=== PATIENT | female | born 1980 | race Caucasian/White ===

== ENCOUNTER 2018-04-08 11:37 | Emergency (ER) | payer MEDICAID ==
[2018-04-08 11:52] VITALS: BP 127/99
[2018-04-08] MEDS ORDERED: LORazepam 2 MG/ML VIAL IVP ONE ×2 (12:20→13:55)
[2018-04-08 12:38] LABS: PLATELET COUNT, AUTOMATED 281 K/uL (150-450)
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
== END 2018-04-08 14:38 ==
LOC: ER 12:01
DX: F20.0 Paranoid schizophrenia (principal); R45.851 Suicidal ideations; F31.9 Bipolar disorder, unspecified
CPT/HCPCS: 80305; 81001; 81025; 83735; 84443; 85025; 96374; 96376; 99284; G0480; J2060; 80320; 80329; 82040; 82247; 82310; 82374; 82435; 82565; 82947; 84075; 84132; 84155; 84295; 84450; 84460; 84520

== ENCOUNTER 2018-04-08 14:17 | Inpatient (IN) | payer MEDICAID, OTHER ==
[2018-04-08] MEDS ORDERED: MAG HYD/AL HYD/SIMETH 30ML UDC PO PRN (14:45)
[2018-04-08] MEDS ORDERED: ACETAMINOPHEN 325 MG TAB PO PRN (14:45)
[2018-04-08] MEDS: OLANZapine 5 MG TAB PO PRN (14:49)
[2018-04-08 15:54] VITALS: BP 120/89
[2018-04-08] MEDS ORDERED: NICOTINE CARTRIDGE 1 EA PO PRN (16:30)
[2018-04-09 05:44] VITALS: BP 133/109
[2018-04-09] MEDS: MULTIVITAMINS PO SCH (08:11)
[2018-04-09] MEDS: NICOTINE INH SYSTEM 10 MG/INH INH PRN ×6 (08:15→19:16)
[2018-04-09] MEDS: OLANZapine 5 MG TAB PO SCH ×2 (10:48→20:37)
[2018-04-09] MEDS: LITHIUM CARBONATE 300 MG CAP PO SCH ×2 (10:48→20:37)
[2018-04-09] MEDS ORDERED: NICOTINE POLACRILEX 2 MG GUM PO PRN (11:15)
[2018-04-09 13:00] VITALS: BP 115/64
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
[2018-04-09 22:20] VITALS: BP 119/64
[2018-04-10 06:31] VITALS: BP 120/70
[2018-04-10] MEDS: MULTIVITAMINS PO SCH (07:25)
[2018-04-10] MEDS: NICOTINE INH SYSTEM 10 MG/INH INH PRN ×5 (07:25→23:04)
[2018-04-10] MEDS: OLANZapine 5 MG TAB PO SCH ×2 (07:25→21:12)
[2018-04-10] MEDS: LITHIUM CARBONATE 300 MG CAP PO SCH (07:25)
[2018-04-10 13:15] VITALS: BP 128/58
--- NOTE | 2018-04-10 13:42 | BHS Progress Note ---
[facility] - Subjective Progress Notes Subjective Pt seen in treatment team meeting with her aunt on speaker phone and Mr. Duron from [facility] in attendance. Pt is still pressured in speech, still vague paranoia, still labile with tears one minute then jumping up and down and laughing in the hallway a short time later. But overall much improved since yesterday after just 24 hours on zyprexa and lithium. Denies n/v/d/tremor/oversedation. Then I attended both the baby's custody hearing as well as her initial Title 25 hearing. She was very tearful at times in court, but behavior was in good control. The baby was ordered into temporary custody of [facility], and pt's involuntary halfway extended not more than 10 days. She tells me she knows she needs more time to stabilize on meds. We are going to call [employer] to come see her-- they might be a valuable resource for her after she is discharged. We told [facility] that we recommend the baby come to visit pt. today and daily during visiting hours-- she will be supervised. Will change meds today so that she is on once-daily dosing and will increase lithium to 900mg per day. Suicidal Ideation: None Homicidal Ideation: None [facility] - Objective Physical Exam Vital Signs Vital Signs 04/09/18 04/10/18 05:44 06:31 Temp 99.3 Pulse 50 Resp 15 B/P (MAP) 120/70 (87) Pulse Ox 96 O2 Delivery Room Air Muscle Strength and Tone: WNL Gait and Station: Steady [facility] Medications Reviewed: Side Effects, Benefits of Medication, Risks Allergies Reviewed: Yes Mental Status Exam General Appearance: Well Groomed, Cooperative, Good Interaction, Tearful Speech: Clear, Rambling Mood: Dysthmic/Depressed Affect: Tearful, Anxious, Agitated, Other (labile) Thought Process: Other (circumstantial to tangential) Thought Content: No Suicidal Ideation, No Homicidal Ideation; Delusions (resolving), Auditory Halllucinations (resolving); No Visual Hallucinations, No Thought Broadcasting, No Ideas of Reference, No Obsessions, No Compulsions, No Other Sensorium: Clear Cognition: Alert & Oriented-Person, Alert & Oriented-Place, Alert & Oriented- Time, Xcfuh-Yioajatn-Efimkzfrh Memory: Immediate, Recent, Remote Intelligence: Average Insight Judgment: Poor (due to psychosis) [facility] Assessment and Plan Rhdc-sj-Qaok Encounter Date: Apr 10, 2018 Enjg-oy-Zweu Encounter Time: 09:30 [facility] Plan: Admit to Unit, Necessary Precautions, Individual/Group Therapy, Admin/Titrate Meds, Educate Patient Tobacco Medications: Started Multpiple Antipsychotics Used: No Problems: (1) Bipolar disorder, current episode manic severe with psychotic features PAUL BATES MD Apr 10, 2018 13:42
[2018-04-10] MEDS: OLANZapine 5 MG TAB PO PRN ×2 (16:36→23:43)
[2018-04-10] MEDS ORDERED: LITHIUM CARBONATE 300 MG TABCR PO ONE (21:00)
[2018-04-10 23:08] VITALS: BP 112/74
[2018-04-10] MEDS ORDERED: LORazepam 1 MG TAB PO ONE (23:25)
[2018-04-11] MEDS: MULTIVITAMINS PO SCH (08:16)
--- NOTE | 2018-04-11 09:36 | BHS Progress Note ---
[facility] - Subjective Progress Notes Subjective "I'm good. I'm ready to go home." Reports that she feels she is thinking clearly and she does not understand why she is still here. She denies hallucinations. Denies paranoid thoughts. "My 72 hours is up so I can leave." Suicidal Ideation: None Homicidal Ideation: None [facility] - Objective Physical Exam Vital Signs Vital Signs 04/10/18 23:08 Temp 98.0 Pulse 63 Resp 16 B/P (MAP) 112/74 (87) Pulse Ox 94 O2 Delivery Room Air Muscle Strength and Tone: WNL Gait and Station: Steady [facility] Medications Reviewed: Side Effects, Benefits of Medication, Risks Allergies Reviewed: Yes Mental Status Exam General Appearance: Well Groomed, Cooperative, Good Interaction Speech: Clear, Rambling Mood: Dysthmic/Depressed Affect: Anxious, Agitated, Other (labile) Thought Process: Other (circumstantial to tangential) Thought Content: No Suicidal Ideation, No Homicidal Ideation; Delusions (resolving), Auditory Halllucinations (resolving); No Visual Hallucinations, No Thought Broadcasting, No Ideas of Reference, No Obsessions, No Compulsions, No Other Sensorium: Clear Cognition: Alert & Oriented-Person, Alert & Oriented-Place, Alert & Oriented- Time, Pzokg-Dyrooevb-Zazgcdsjf Memory: Immediate, Recent, Remote Intelligence: Average Insight Judgment: Poor (due to psychosis) [facility] Assessment and Plan Vkht-wo-Hgew Encounter Date: Apr 11, 2018 Oqle-wr-Awxh Encounter Time: 09:15 [facility] Plan: Admit to Unit, Necessary Precautions, Individual/Group Therapy, Admin/Titrate Meds, Educate Patient Tobacco Medications: Started Multpiple Antipsychotics Used: No Problems: (1) Bipolar disorder, current episode manic severe with psychotic features Status: Acute OLIVA VAUGHN NP Apr 11, 2018 09:36
[2018-04-11] MEDS: NICOTINE INH SYSTEM 10 MG/INH INH PRN ×5 (10:51→20:55)
[2018-04-11 12:25] VITALS: BP 122/90
[2018-04-11] MEDS: OLANZapine 5 MG TAB PO SCH (20:54)
[2018-04-11] MEDS: LITHIUM CARBONATE 300 MG TABCR PO SCH (20:54)
[2018-04-12 05:01] VITALS: BP 130/85
[2018-04-12] MEDS: NICOTINE INH SYSTEM 10 MG/INH INH PRN ×4 (08:30→18:46)
[2018-04-12] MEDS: MULTIVITAMINS PO SCH (08:31)
--- NOTE | 2018-04-12 11:51 | BHS Progress Note ---
[facility] - Subjective Progress Notes Subjective "I need to know why I'm still here. You can't hold me here against my will. I came here voluntarily. Suicidal Ideation: None Homicidal Ideation: None [facility] - Objective Physical Exam Deferred Vital Signs Date Time Temp Pulse Resp B/P (MAP) Pulse Ox O2 Delivery O2 Flow Rate FiO2 04/12/18 05:01 97.8 49 14 130/85 (100) 95 Room Air Muscle Strength and Tone: WNL Gait and Station: Steady [facility] Medications Reviewed: Side Effects, Benefits of Medication, Risks Allergies Reviewed: Yes Mental Status Exam General Appearance: Well Groomed, Psychomotor Agitation Speech: Clear, Normal Volume, Normal Tone, Rambling Mood: Dysthmic/Depressed Affect: Anxious, Agitated, Other (labile) Thought Process: Other (circumstantial to tangential) Thought Content: No Suicidal Ideation, No Homicidal Ideation; Delusions (resolving), Auditory Halllucinations (denies); No Visual Hallucinations, No Thought Broadcasting, No Ideas of Reference, No Obsessions, No Compulsions, No Other Sensorium: Clear Cognition: Alert & Oriented-Person, Alert & Oriented-Place, Alert & Oriented- Time, Lhyvj-Gnenllja-Syuxamzgm Memory: Immediate, Recent, Remote Intelligence: Average Insight Judgment: Poor (due to psychosis) [facility] Assessment and Plan Zzdb-qf-Avsh Encounter Date: Apr 12, 2018 Kxel-lf-Cktz Encounter Time: 10:00 [facility] Plan: Admit to Unit, Necessary Precautions, Individual/Group Therapy, Admin/Titrate Meds, Educate Patient Tobacco Medications: Started Multpiple Antipsychotics Used: No Problems: (1) Bipolar disorder, current episode manic severe with psychotic features Status: Acute OLIVA VAUGHN NP Apr 12, 2018 11:51
[2018-04-12 12:15] VITALS: BP 120/88
--- NOTE | 2018-04-12 16:21 | NUR ---
pt daughter here, brought by Zhang from [facility]. visiting in pts room.
[2018-04-12] MEDS: LITHIUM CARBONATE 300 MG TABCR PO SCH (20:32)
[2018-04-12] MEDS: OLANZapine 5 MG TAB PO SCH (20:32)
[2018-04-13 06:02] VITALS: BP 109/71
[2018-04-13] MEDS: NICOTINE INH SYSTEM 10 MG/INH INH PRN ×5 (08:03→21:12)
[2018-04-13] MEDS: MULTIVITAMINS PO SCH (08:03)
[2018-04-13] MEDS: LITHIUM CARBONATE 450 MG TABCR PO SCH ×2 (10:06→21:12)
--- NOTE | 2018-04-13 13:09 | BHS Progress Note ---
[facility] - Subjective Progress Notes Subjective Pt seen in treatment team with her aunt and also Mr. Mc from [facility] both joining by speaker phone. Pt says she is feels "much better," and her aunt confirms that she sounds more like her usual best baseline. Pt denies ah/vh/delusions. She is tolerating zyprexa well, but she c/o the whole 900 mg of lithium all at once making her feel nauseated-- so we will split her dose to 450 mg BID. She is still a little pressured and hyperthymic, with dramatic voice and gestures, says she wants to "leave right now and get a job!" She had two good visits with her baby over the weekend. I would like to see her work on treatment at least another day or two, be sure she tolerates meds with new dosing, and would like to see any hypomania completely resolved before she is safe for discharge-- especially if she is going to regain custody of her baby (which is the Audiologist's decision) and travel by car back to [place]. Suicidal Ideation: None Homicidal Ideation: None [facility] - Objective Physical Exam Vital Signs Vital Signs 04/13/18 06:02 Temp 98.9 Pulse 48 Resp 15 B/P (MAP) 109/71 (84) Pulse Ox 94 O2 Delivery Room Air Muscle Strength and Tone: WNL Gait and Station: Steady [facility] Medications Reviewed: Side Effects, Benefits of Medication, Risks Allergies Reviewed: Yes Mental Status Exam General Appearance: Casual, Well Groomed, Good Eye Contact, Cooperative, Polite, Good Interaction, Psychomotor Agitation Speech: Clear, Other (speech is mildly pressured, mild rambling, but interruptible) Mood: Dysthmic/Depressed, Hyperthymic, Other (still a bit labile) Affect: Anxious, Agitated (mildly), Other (labile) Thought Process: Other (circumstantial to tangential) Thought Content: No Suicidal Ideation, No Homicidal Ideation; Delusions (resolving), Auditory Halllucinations (denies); No Visual Hallucinations, No Thought Broadcasting, No Ideas of Reference, No Obsessions, No Compulsions, No Other Sensorium: Clear Cognition: Alert & Oriented-Person, Alert & Oriented-Place, Alert & Oriented- Time, Entaf-Pqmenqvf-Gyovikmjf Memory: Immediate, Recent, Remote Intelligence: Average Insight Judgment: Fair (improving as psychosis and alia are resolving) [facility] Assessment and Plan Aonz-qc-Jjga Encounter Date: Apr 13, 2018 Amvo-dg-Xlar Encounter Time: 08:30 [facility] Plan: Admit to Unit, Necessary Precautions, Individual/Group Therapy, Admin/Titrate Meds, Educate Patient Tobacco Medications: Started Multpiple Antipsychotics Used: No Problems: (1) Bipolar disorder, current episode manic severe with psychotic features Status: Acute PAUL BATES MD Apr 13, 2018 13:09
[2018-04-13 13:19] VITALS: BP 135/90
[2018-04-13] MEDS: OLANZapine 5 MG TAB PO SCH (21:12)
[2018-04-14 06:32] VITALS: BP 123/77
[2018-04-14] MEDS: MULTIVITAMINS PO SCH (08:41)
[2018-04-14] MEDS: LITHIUM CARBONATE 450 MG TABCR PO SCH ×2 (08:41→21:32)
[2018-04-14] MEDS: NICOTINE INH SYSTEM 10 MG/INH INH PRN ×2 (08:45→12:55)
--- NOTE | 2018-04-14 11:28 | BHS Progress Note ---
[facility] - Subjective Progress Notes Subjective Pt seen in conference room. She says she is feeling much better, feels meds are helping a lot, denies oversedation/n/v/d/tremor. She is still a bit tangential, guarded, with labile affect-- pleasant and smiling to irritable and hostile when we indicated that she needs a couple more days to stabilize. We would like to help her plan for a safe discharge to include housing, medications, therapy-- she is still trying to decide between returning to [facility] vs possibly staying here in [place], working with [employer], establishing her own apartment and a job. Will continue current meds and check routine lithium labs tomorrow, also repeat U/A which was abnormal. Suicidal Ideation: None Homicidal Ideation: None [facility] - Objective Physical Exam Vital Signs Vital Signs 04/13/18 04/14/18 06:02 06:32 Temp 98.7 Pulse 51 Resp 15 B/P (MAP) 123/77 (92) Pulse Ox 97 O2 Delivery Room Air Muscle Strength and Tone: WNL Gait and Station: Steady [facility] Medications Reviewed: Side Effects, Benefits of Medication, Risks Allergies Reviewed: Yes Mental Status Exam General Appearance: Casual, Well Groomed, Good Eye Contact, Cooperative, Polite, Good Interaction, Psychomotor Agitation Speech: Clear, Other (speech is mildly pressured, mild rambling, but interruptible) Mood: Dysthmic/Depressed, Hyperthymic, Other (labile-- happy one minute then hostile and irritable) Affect: Anxious, Agitated (mildly), Other (labile) Thought Process: Other (circumstantial to tangential) Thought Content: No Suicidal Ideation, No Homicidal Ideation; Delusions (resolving); No Auditory Halllucinations, No Visual Hallucinations, No Thought Broadcasting, No Ideas of Reference, No Obsessions, No Compulsions, No Other Sensorium: Clear Cognition: Alert & Oriented-Person, Alert & Oriented-Place, Alert & Oriented- Time, Lffsq-Wblmqdby-Rkigtezpu Memory: Immediate, Recent, Remote Intelligence: Average Insight Judgment: Fair (improving as psychosis and alia are resolving) [facility] Assessment and Plan Hcrm-kb-Sogk Encounter Date: Apr 14, 2018 Rajz-zf-Ihte Encounter Time: 09:00 [facility] Plan: Admit to Unit, Necessary Precautions, Individual/Group Therapy, Admin/Titrate Meds, Educate Patient Tobacco Medications: Started Multpiple Antipsychotics Used: No Problems: (1) Bipolar disorder, current episode manic severe with psychotic features Status: Acute PAUL BATES MD Apr 14, 2018 11:28
[2018-04-14] MEDS: OLANZapine 5 MG TAB PO SCH (21:32)
[2018-04-15 05:49] VITALS: BP 116/78
[2018-04-15] MEDS: MULTIVITAMINS PO SCH (08:08)
[2018-04-15] MEDS: LITHIUM CARBONATE 450 MG TABCR PO SCH ×2 (08:08→21:20)
[2018-04-15] MEDS: NICOTINE INH SYSTEM 10 MG/INH INH PRN ×4 (08:27→17:38)
--- NOTE | 2018-04-15 18:30 | BHS Progress Note ---
[facility] - Subjective Progress Notes Subjective Pt seen in treatment team with DFS on phone, members of [facility] present, and [facility] Business Administration Professor present, and Angel from [facility]. Pt doing better today, but she did tell me "I think I need more medicine." She had a lot of racing thoughts and paranoia yesterday. Team is working toward a safe discharge plan here in [place], with housing via [facility], follow up at [facility], and an outpatient commitment. Will increase zyprexa tonight to 15 mg. Will add stool softener for c/o constipation. Hale level is 1.0. Other labs look good. Suicidal Ideation: None Homicidal Ideation: None [facility] - Objective Physical Exam Vital Signs Vital Signs 04/15/18 05:49 Temp 97.6 Pulse 50 Resp 15 B/P (MAP) 116/78 (91) Pulse Ox 96 O2 Delivery Room Air Muscle Strength and Tone: WNL Gait and Station: Steady [facility] Medications Reviewed: Side Effects, Benefits of Medication, Risks Allergies Reviewed: Yes Mental Status Exam General Appearance: Casual, Well Groomed, Good Eye Contact, Cooperative, Polite, Good Interaction, Psychomotor Agitation Speech: Clear, Other (speech is mildly pressured, mild rambling, but interru ptible) Mood: Dysthmic/Depressed, Hyperthymic, Other (labile-- happy one minute then hostile and irritable) Affect: Anxious, Agitated (mildly), Other (labile) Thought Process: Other (circumstantial to tangential) Thought Content: No Suicidal Ideation, No Homicidal Ideation; Delusions (resolving); No Auditory Halllucinations, No Visual Hallucinations, No Thought Broadcasting, No Ideas of Reference, No Obsessions, No Compulsions, No Other Sensorium: Clear Cognition: Alert & Oriented-Person, Alert & Oriented-Place, Alert & Oriented- Time, Plzxq-Fjnxqxye-Lfzbxmsaw Memory: Immediate, Recent, Remote Intelligence: Average Insight Judgment: Fair (improving as psychosis and alia are resolving) Result Diagram: 04/15/18 0717 Lab Hematology Test 04/09/18 00:00 04/15/18 00:00 04/15/18 07:17 Hepatitis A IgM Antibody Negative (Negative) Hepatitis B Surface Antigen Negative (Negative) Hepatitis B Core IgM Antibody Negative (Negative) Hepatitis C Antibody 0.07 IV Hepatitis C Interpretation Negative (Negative) Hepatitis Interpretation See note HIV (1&2) Antibody Negative (NEGATIVE) Urine Color Yellow Urine Clarity Clear Urine pH 6.0 pH (4.8-9.5) Urine Specific [place] 1.015 Urine Protein Negative mg/dL (NEGATIVE) Urine Glucose (UA) Negative mg/dL (NEGATIVE) Urine Ketones Negative mg/dL (NEGATIVE) Urine Blood Small (NEGATIVE) Urine Nitrite Negative (NEGATIVE) Urine Bilirubin Negative (NEGATIVE) Urine Urobilinogen Negative mg/dL (0.2-1.9) Urine Leukocyte Esterase Negative (NEGATIVE) Urine RBC 5 /HPF (0-2/HPF) Urine WBC 2 /HPF (0-5/HPF) Urine Squamous Epithelial Cells Many /LPF (</=FEW) Urine Bacteria Negative /HPF (NONE-FEW) Urine Mucus None /HPF (NONE-FEW) Sodium Level 138 mmol/L (137-145) Potassium Level 4.2 mmol/L (3.5-5.0) Chloride Level 107 mmol/L (98-107) Carbon Dioxide Level 25 mmol/L (22-31) Blood Urea Nitrogen 16 mg/dl (7-18) Creatinine 0.80 mg/dl (0.52-1.04) Glomerular Filtration Rate Calc > 60.0 Random Glucose 81 mg/dl (75-110) Calcium Level 9.5 mg/dl (8.4-10.2) Total Bilirubin 0.3 mg/dl (0.2-1.3) Aspartate Amino Transf (AST/SGOT) 20 U/L (0-35) Alanine Aminotransferase (ALT/SGPT) 27 U/L (0-56) Alkaline Phosphatase 36 U/L (0-126) Total Protein 6.7 g/dl (6.3-8.2) Albumin 4.0 g/dl (3.5-5.0) Thyroid Stimulating Hormone (TSH) 1.84 uIU/ml (0.46-4.68) Hale Level 1.0 mmol/L (0.6-1.2) Chemistry Test 04/09/18 00:00 04/15/18 00:00 04/15/18 07:17 Hepatitis A IgM Antibody Negative (Negative) Hepatitis B Surface Antigen Negative (Negative) Hepatitis B Core IgM Antibody Negative (Negative) Hepatitis C Antibody 0.07 IV Hepatitis C Interpretation Negative (Negative) Hepatitis Interpretation See note HIV (1&2) Antibody Negative (NEGATIVE) Urine Color Yellow Urine Clarity Clear Urine pH 6.0 pH (4.8-9.5) Urine Specific [place] 1.015 Urine Protein Negative mg/dL (NEGATIVE) Urine Glucose (UA) Negative mg/dL (NEGATIVE) Urine Ketones Negative mg/dL (NEGATIVE) Urine Blood Small (NEGATIVE) Urine Nitrite Negative (NEGATIVE) Urine Bilirubin Negative (NEGATIVE) Urine Urobilinogen Negative mg/dL (0.2-1.9) Urine Leukocyte Esterase Negative (NEGATIVE) Urine RBC 5 /HPF (0-2/HPF) Urine WBC 2 /HPF (0-5/HPF) Urine Squamous Epithelial Cells Many /LPF (</=FEW) Urine Bacteria Negative /HPF (NONE-FEW) Urine Mucus None /HPF (NONE-FEW) Glomerular Filtration Rate Calc > 60.0 Calcium Level 9.5 mg/dl (8.4-10.2) Total Bilirubin 0.3 mg/dl (0.2-1.3) Aspartate Amino Transf (AST/SGOT) 20 U/L (0-35) Alanine Aminotransferase (ALT/SGPT) 27 U/L (0-56) Alkaline Phosphatase 36 U/L (0-126) Total Protein 6.7 g/dl (6.3-8.2) Albumin 4.0 g/dl (3.5-5.0) Thyroid Stimulating Hormone (TSH) 1.84 uIU/ml (0.46-4.68) Hale Level 1.0 mmol/L (0.6-1.2) Toxicology Test 04/15/18 07:17 Hale Level 1.0 mmol/L (0.6-1.2) Urinalysis Test 04/15/18 00:00 Urine Color Yellow Urine Clarity Clear Urine pH 6.0 pH (4.8-9.5) Urine Specific [place] 1.015 Urine Protein Negative mg/dL (NEGATIVE) Urine Glucose (UA) Negative mg/dL (NEGATIVE) Urine Ketones Negative mg/dL (NEGATIVE) Urine Blood Small (NEGATIVE) Urine Nitrite Negative (NEGATIVE) Urine Bilirubin Negative (NEGATIVE) Urine Urobilinogen Negative mg/dL (0.2-1.9) Urine Leukocyte Esterase Negative (NEGATIVE) Urine RBC 5 /HPF (0-2/HPF) Urine WBC 2 /HPF (0-5/HPF) Urine Squamous Epithelial Cells Many /LPF (</=FEW) Urine Bacteria Negative /HPF (NONE-FEW) Urine Mucus None /HPF (NONE-FEW) [facility] Assessment and Plan Qfyf-ui-Afoc Encounter Date: Apr 15, 2018 Fypn-la-Iorf Encounter Time: 09:30 [facility] Plan: Admit to Unit, Necessary Precautions, Individual/Group Therapy, Admin/Titrate Meds, Educate Patient Tobacco Medications: Started Multpiple Antipsychotics Used: No Problems: (1) Bipolar disorder, current episode manic severe with psychotic features Status: Acute PAUL BATES MD Apr 15, 2018 18:30
[2018-04-15] MEDS: OLANZapine 5 MG TAB PO SCH (21:20)
[2018-04-15] MEDS: BISACODYL 5 MG TABEC PO SCH (21:20)
[2018-04-15] MEDS: DOCUSATE SODIUM 100 MG CAP PO SCH (21:20)
[2018-04-16 06:03] VITALS: BP 102/67
[2018-04-16] MEDS: LITHIUM CARBONATE 450 MG TABCR PO SCH ×2 (08:46→20:06)
[2018-04-16] MEDS: MULTIVITAMINS PO SCH (08:47)
[2018-04-16] MEDS: NICOTINE INH SYSTEM 10 MG/INH INH PRN ×3 (09:01→15:47)
--- NOTE | 2018-04-16 18:08 | BHS Progress Note ---
[facility] - Subjective Progress Notes Subjective Pt seen in conference room with staff. Pt doing better, says she feels mood is more stable, is pleasant and smiling. Tolerated the increased dose of zyprexa well, denies oversedation. We reviewed plans for tentative DC tomorrow with supports in the community. She will follow up at [facility]. Eder erating lithium well, denies n/v/d/tremor. Suicidal Ideation: None Homicidal Ideation: None [facility] - Objective Physical Exam Vital Signs Vital Signs 04/16/18 06:03 Temp 97.8 Pulse 50 Resp 15 B/P (MAP) 102/67 (79) Pulse Ox 95 O2 Delivery Room Air Muscle Strength and Tone: WNL Gait and Station: Steady [facility] Medications Reviewed: Side Effects, Benefits of Medication, Risks Allergies Reviewed: Yes Mental Status Exam General Appearance: Casual, Well Groomed, Good Eye Contact, Cooperative, Polite, Good Interaction, Psychomotor Agitation Speech: Clear, Other (speech is mildly pressured, mild rambling, but interruptible) Mood: Euthymic Affect: Full and Appropriate Thought Process: Organized, Logical, Goal Directed Thought Content: No Suicidal Ideation, No Homicidal Ideation, No Delusions, No Auditory Halllucinations, No Visual Hallucinations, No Thought Broadcasting, No Ideas of Reference, No Obsessions, No Compulsions, No Other Sensorium: Clear Cognition: Alert & Oriented-Person, Alert & Oriented-Place, Alert & Oriented- Time, Znnms-Ofwddkxf-Raesqwcua Memory: Immediate, Recent, Remote Intelligence: Average Insight Judgment: Fair (improving as psychosis and alia are resolving) Result Diagram: 04/15/18 0717 [facility] Assessment and Plan Ktiq-ia-Llgq Encounter Date: Apr 16, 2018 Ijvh-hf-Alet Encounter Time: 09:30 [facility] Plan: Admit to Unit, Necessary Precautions, Individual/Group Therapy, Admin/Titrate Meds, Educate Patient Tobacco Medications: Started Multpiple Antipsychotics Used: No Problems: (1) Bipolar disorder, current episode manic severe with psychotic features Status: Acute PAUL BATES MD Apr 16, 2018 18:08
[2018-04-16] MEDS: BISACODYL 5 MG TABEC PO SCH (20:05)
[2018-04-16] MEDS: DOCUSATE SODIUM 100 MG CAP PO SCH (20:06)
[2018-04-16] MEDS: OLANZapine 5 MG TAB PO SCH (20:06)
--- NOTE | 2018-04-16 23:00 | NUR ---
Note from [id number], Patient up in TV room upon start of shift. In pleasant mood, watching basketball game. Very talkative with staff, expressing readiness to find a place to live and be able to get child back in custody. States "a little anxious over finding the right place to live." Staff helped patient talk over anxiety and to calm thoughts. Patient showered without issues and was able to fall asleep without difficulties.
[2018-04-17 06:15] VITALS: BP 134/78
[2018-04-17] MEDS: NICOTINE INH SYSTEM 10 MG/INH INH PRN ×2 (07:33→11:40)
[2018-04-17] MEDS: MULTIVITAMINS PO SCH (08:26)
[2018-04-17] MEDS: LITHIUM CARBONATE 450 MG TABCR PO SCH (08:26)
[2018-04-17 10:35] VITALS: BP 118/80
[2018-04-17] MEDS ORDERED: DOCU-416 PO (14:08)
[2018-04-17] MEDS ORDERED: LITC450 PO (14:09)
[2018-04-17] MEDS ORDERED: NIC10R INH (14:17)
[2018-04-17] MEDS ORDERED: NICOTROL CARTRIDGE PO (14:18)
[2018-04-17] MEDS ORDERED: OLAN15TA19 PO (14:19)
--- NOTE | 2018-04-17 16:55 | BHS Discharge Summary ---
[facility] Discharge Summary Mhoa-wy-Feby Encounter Date: Apr 17, 2018 [id number] Encounter Time: 09:00 Reason-Hosp/Final Diag (DSM-V): (1) Bipolar disorder, current episode manic severe with psychotic features Status: Acute Hospital Course & Plan: HISTORY OF PRESENT ILLNESS This is a 38-year-old female who is hospitalized on an involuntary psychiatric hold done by the emergency room physician due to inability to care for herself secondary to psychosis. The patient says she has a history of bipolar disorder, and her aunt to whom we spoke also confirms this. The patient was fairly disorganized in her thought process and was clearly delusional and was difficult to follow at times. She apparently had left [facility] where she lives with her [id number] baby and had driven all night. Once she got to [facility], she presented herself to the Emergency Room. She has apparently not been on any medication. She describes paranoid delusions about her two ex-husbands conspiring against her, starting a campaign on [employer] against her. She acknowledged auditory hallucinations of various voices. She acknowledged hallucinations of music. She acknowledged visual hallucinations, but could not describe them. Her aunt reported that the patient had been living in [place], [place], at her grandmother's house, but that her grandmother moved out of that house about a week ago to move to a residential facility. The aunt says that the family is in pretty close contact with the patient, and they hope the patient cares for her [id number] infant. It is unclear how long the patient has been off her medications. Due to her gross psychosis and some agitation in the Emergency Room, [facility] was called, and they took custody of the [id number] baby, and the patient was admitted to Behavioral Health. PAST PSYCHIATRIC HISTORY The patient said she has been diagnosed with bipolar or schizoaffective disorder. She has been hospitalized three prior times, once at the age of 18 after a suicide attempt, once at the age of 20 after a suicide attempt by cutting her wrist, and again at the age of 23 after a suicide attempt by cutting her wrist. She did previously have outpatient treatment in [place], [place], but she says she has not taken any psychiatric medications for a long time. In the past, she has taken Risperdal, Zoloft, Geodon, Lamictal, Ativan. She says she has never tried lithium, Zyprexa, or Abilify. HOSPITAL COURSE Pt was admitted to [facility] and started on zyprexa 5 mg BID and lithium 300 BID. These were well tolerated and ultimately increased to lithium 450 mg BID (level was 1.0) and zyprexa 15 mg q HS. Pt responded well to medication with resolution of psychosis completely, and mood stabilized nicely. We had several meeting with her family in [place] by speaker phone and it became clear that she would not be able to live with any of them. She wanted to stay in [place], so we coordinated a team with [facility] and [facility] for therapy, medication management, and case management. Her vegetable inspector was involved-- she waived her first hearing and then stabilized enough for discharge prior to the end of her 10-day. We worked with DFS, and the baby who remained in foster care did come for several supervised visits, during which times she was observed to be warm, attentive, and appropriate to the child's needs. By day of discharge she was stable and much improved, with follow up arranged with the agencies above. There were no tests/studies pending at time of discharge. Physical Exam Latest Vital Signs Vital Signs 04/17/18 10:35 Temp 100.0 Pulse 68 Resp 16 B/P (MAP) 118/80 (93) Pulse Ox 94 O2 Delivery Room Air Mental Status Exam General Appearance: Casual, Well Groomed, Good Eye Contact, Cooperative, Polit e, Good Interaction, Psychomotor Agitation Speech: Clear, Spontaneous, Normal Rate, Normal Rhythm, Normal Volume, Normal Tone Mood: Euthymic Affect: Full and Appropriate Thought Process: Organized, Logical, Goal Directed Thought Content: No Suicidal Ideation, No Homicidal Ideation, No Delusions, No Auditory Halllucinations, No Visual Hallucinations, No Thought Broadcasting, No Ideas of Reference, No Obsessions, No Compulsions, No Other Sensorium: Clear Cognition: Alert & Oriented-Person, Alert & Oriented-Place, Alert & Oriented- Time, [id number] Memory: Immediate, Recent, Remote Intelligence: Average Insight Judgment: Fair Departure Result Diagram: 04/15/18 0717 Item Value Date Time White Blood Count 8.9 k/uL 04/08/18 1229 Red Blood Count 5.05 M/uL 04/08/18 1229 Hemoglobin 15.6 g/dL 04/08/18 1229 Hematocrit 46.0 % 04/08/18 1229 Mean Corpuscular Volume 91.1 fL 04/08/18 1229 Mean Corpuscular Hemoglobin 30.8 pg 04/08/18 1229 Mean Corpuscular Hemoglobin Concent 33.9 g/dL 04/08/18 1229 Red Cell Distribution Width 13.8 % 04/08/18 1229 Platelet Count 281 K/uL 04/08/18 1229 Sodium Level 138 mmol/L 04/15/18 0717 Potassium Level 4.2 mmol/L 04/15/18 0717 Chloride Level 107 mmol/L 04/15/18 0717 Carbon Dioxide Level 25 mmol/L 04/15/18 0717 Blood Urea Nitrogen 16 mg/dl 04/15/18 0717 Creatinine 0.80 mg/dl 04/15/18 0717 Glomerular Filtration Rate Calc > 60.0 04/15/18 0717 Random Glucose 81 mg/dl 04/15/18 0717 Calcium Level 9.5 mg/dl 04/15/18 0717 Magnesium Level 2.0 mg/dl 04/08/18 1229 Total Bilirubin 0.3 mg/dl 04/15/18 0717 Aspartate Amino Transf (AST/SGOT) 20 U/L 04/15/18 0717 Alanine Aminotransferase (ALT/SGPT) 27 U/L 04/15/18 0717 Alkaline Phosphatase 36 U/L 04/15/18 0717 Total Protein 6.7 g/dl 04/15/18 0717 Albumin 4.0 g/dl 04/15/18 0717 Thyroid Stimulating Hormone (TSH) 1.84 uIU/ml 04/15/18 0717 Urine Color Yellow 04/15/18 Urine Clarity Clear 04/15/18 Urine pH 6.0 pH 04/15/18 Urine Specific [place] 1.015 04/15/18 Urine Protein Negative mg/dL 04/15/18 Urine Glucose (UA) Negative mg/dL 04/15/18 Urine Ketones Negative mg/dL 04/15/18 Urine Blood Small 04/15/18 Urine Nitrite Negative 04/15/18 Urine Bilirubin Negative 04/15/18 Urine Urobilinogen Negative mg/dL 04/15/18 Urine Leukocyte Esterase Negative 2/20/19 0000 Urine RBC 5 /HPF 04/15/18 0000 Urine WBC 2 /HPF 04/15/18 0000 Urine Squamous Epithelial Cells Many /LPF H 04/15/18 0000 Urine Bacteria Negative /HPF 04/15/18 0000 Urine Hyaline Casts Few /LPF 04/08/18 1143 Urine Mucus None /HPF 04/15/18 0000 Urine HCG, Qualitative Negative 04/08/18 1143 Salicylates Level < 10 mg/L 04/08/18 1229 Salicylate Last Dose Date unk 04/08/18 1229 Urine Opiates Screen Negative 04/08/18 1143 Acetaminophen Level < 10 ug/ml 04/08/18 1229 Urine Barbiturates Screen Negative 04/08/18 1143 Ur Tricyclic Antidepressants Screen Negative 04/08/18 1143 Urine Phencyclidine Screen Negative 04/08/18 1143 Urine Amphetamines Screen Negative 04/08/18 1143 Urine Benzodiazepines Screen Negative 04/08/18 1143 [place] Level 1.0 mmol/L 04/15/18 0717 Urine Cocaine Screen Negative 04/08/18 1143 Urine Cannabinoids Screen Negative 04/08/18 1143 Serum Alcohol < 10 mg/dl 04/08/18 1229 Hepatitis A IgM Antibody Negative 04/09/18 0000 Hepatitis B Surface Antigen Negative 04/09/18 0000 Hepatitis B Core IgM Antibody Negative 04/09/18 0000 Hepatitis C Antibody 0.07 IV 04/09/18 0000 Hepatitis C Interpretation Negative 04/09/18 0000 Hepatitis Interpretation See note 04/09/18 0000 HIV (1&2) Antibody Negative 04/09/18 0000 Condition: Improved Discharge to: Home Discharge Instructions Home Meds Reported Medications Olanzapine (ZYPREXA) 15 Mg Tablet, 15 MG PO QHS PRN for NICOTINE REPLACEMENT 04/17/18 [Nicotrol Cartridge] No Conflict [place], 1 EA PO PRN PRN for NICOTINE REPLACEMENT 04/17/18 Nicotine (NICOTROL) 10 Mg/Inh Ctr, 10 MG INH Q2H 04/17/18 [place] Carbonate (LITHIUM CARBONATE) 450 Mg Tabcr, 450 MG PO BID 04/17/18 Docusate Sodium (COLACE) 100 Mg Capsule, 100 MG PO QHS, CAPSULE 04/17/18 Multpiple Antipsychotics Used: No Diet: Regular Activity: As Tolerated Special Instructions: Take medications as prescribed. Follow up with outpatient provider for medication management. Follow up with outpatient therapy. Follow up with [facility] program. Follow up with all outpatient wrap around services. Call Crisis Line if symptoms return. PAUL BATES MD Apr 17, 2018 16:55
== END 2018-04-17 14:40 | disposition home or self-care (01) | DRG 885 ==
LOC: BHS 14:17
PROVIDERS: ADMIT Psychiatry & Neurology Psychiatry; ATTEND Psychiatry & Neurology Psychiatry
DX: F31.5 Bipolar disorder, current episode depressed, severe, with psychotic features (principal); Z62.810 Personal history of physical and sexual abuse in childhood; F17.210 Nicotine dependence, cigarettes, uncomplicated; F12.20 Cannabis dependence, uncomplicated; Z91.5 Personal history of self-harm; Z91.14 Patient's other noncompliance with medication regimen; Z91.410 Personal history of adult physical and sexual abuse; Z73.3 Stress, not elsewhere classified; Z63.79 Other stressful life events affecting family and household
CPT/HCPCS: 36415; 80074; 80178; 81001; 82040; 82247; 82310; 82374; 82435; 82565; 82947; 84075; 84132; 84155; 84295; 84443; 84450; 84460; 84520; 86703